=== PATIENT | male | born 1985 | race Caucasian/White ===

== ENCOUNTER 2024-05-28 15:54 | Emergency (ER) | payer BC ==
[~2024-05-28] VITALS: Ht 187.9 cm; Wt 140.6 kg
[~2024-05-28 15:54] MED LIST: AMOXICILLIN500 MG PO; CEPHALEXIN500 M1 PO; PROTONIX40 MG PO; SEPTRA DS 800 M1 TAB PO
[2024-05-28] MEDS ORDERED: methylPREDNISolone sod succ 125 MG VIAL IV ONE (17:00)
[2024-05-28] MEDS ORDERED: Albuterol Sulf/Ipratropium 3 ML VIAL NEB ONE (17:00)
[2024-05-28 17:17] LABS: HEMATOCRIT 48.1 % (42.0-52.0); MEAN CELL VOLUME 88.7 fl (80.0-94.0); MEAN CORPUSCULAR HGB 28.2 pg (27.0-31.0); MEAN CORPUSCULAR HGB CONC 31.8 g/dl (33.0-37.0); PLATELET COUNT AUTOMATED 309 10*3/uL (130-400); RED BLOOD COUNT 5.42 10*6/uL (4.50-5.90); RED CELL DISTRI WIDTH 13.3 % (0-14.5); WHITE BLOOD COUNT 18.8 10*3/uL (4.8-10.8)
[2024-05-28 17:18] LABS: MANUAL DIFF REFLEX YES
[2024-05-28 17:35] LABS: CHLORIDE 103 mmol/L (98-107); POTASSIUM 4.2 mmol/L (3.4-5.1)
[2024-05-28 17:38] LABS: BUN < 5 mg/dl (9-23)
[2024-05-28 17:45] LABS: PLATELET SUFFICIENCY NORMAL (NORMAL); TOTAL CELLS COUNTED 100 #CELLS
[2024-05-28 17:46] LABS: BURR CELLS FEW
[2024-05-28] MEDS ORDERED: VIBRAMYCIN100 MG PO (18:18)
[2024-05-28] MEDS ORDERED: PREDNISONE50 MG PO (18:18)
== END 2024-05-28 19:09 | disposition left against medical advice (07) ==
LOC: ED 15:54
PROVIDERS: Physician Assistant Medical
DX: R09.02 Hypoxemia (principal); R79.1 Abnormal coagulation profile; D72.829 Elevated white blood cell count, unspecified; Z53.29 Procedure and treatment not carried out because of patient's decision for other reasons; F17.210 Nicotine dependence, cigarettes, uncomplicated; Z88.2 Allergy status to sulfonamides; Z88.8 Allergy status to other drugs, medicaments and biological substances

== ENCOUNTER 2024-06-04 08:49 | Emergency (ER) | payer BC ==
[~2024-06-04] VITALS: Ht 187.9 cm; Wt 140.6 kg
[~2024-06-04 08:49] MED LIST changes: +PREDNISONE50 MG PO; +VIBRAMYCIN100 MG PO
[2024-06-04] MEDS ORDERED: SODIUM CHLORIDE 0.9% 1,000 ML IV ONE (09:15)
[2024-06-04] MEDS ORDERED: MORPHINE Sulfate 2 MG/ML SYR IV ONE (09:15)
[2024-06-04] MEDS ORDERED: Ondansetron Hydrochloride 4 MG/2 ML VIAL IV ONE (09:15)
[2024-06-04] MEDS ORDERED: Ketorolac Tromethamine 15 MG/ML VIAL IV ONE (09:15)
[2024-06-04 09:32] LABS: MEAN CELL VOLUME 89.5 fl (80.0-94.0); MEAN CORPUSCULAR HGB 28.2 pg (27.0-31.0); MEAN CORPUSCULAR HGB CONC 31.6 g/dl (33.0-37.0); MEAN PLATELET VOLUME 8.5 fl (9.6-12.3); PLATELET COUNT AUTOMATED 476 10*3/uL (130-400); RED CELL DISTRI WIDTH 13.3 % (0-14.5); WHITE BLOOD COUNT 17.3 10*3/uL (4.8-10.8)
[2024-06-04 09:33] LABS: MANUAL DIFF REFLEX YES
[2024-06-04 09:52] LABS: BUN 8 mg/dl (9-23); CHLORIDE 104 mmol/L (98-107); POTASSIUM 4.1 mmol/L (3.4-5.1)
[2024-06-04] MEDS ORDERED: WELLBUTRIN SR100 MG PO (10:09)
[2024-06-04] MEDS ORDERED: AVPAK AZITHROM250 M1 PO (10:09)
[2024-06-04] MEDS ORDERED: MELOXICAM15 MG PO (10:09)
[2024-06-04 10:10] LABS: ATYPICAL LYMPHS 2 % (0-0); BASOPHILS 1 % (0-1); TOTAL CELLS COUNTED 100 #CELLS
[2024-06-04 10:11] LABS: PLATELET SUFFICIENCY HIGH (NORMAL)
== END 2024-06-04 10:14 | disposition home or self-care (01) ==
LOC: ED 08:49
PROVIDERS: Emergency Medicine
DX: J40 Bronchitis, not specified as acute or chronic (principal); R07.81 Pleurodynia; F17.210 Nicotine dependence, cigarettes, uncomplicated; Z88.2 Allergy status to sulfonamides; Z88.8 Allergy status to other drugs, medicaments and biological substances

== ENCOUNTER → 2024-12-21 | Outpatient (CLI) | payer BC ==
[~2024-12-21] MED LIST changes: +AVPAK AZITHROM250 M1 PO; +MELOXICAM15 MG PO; +WELLBUTRIN SR100 MG PO
[2024-12-21 11:14] LABS: BASO # 0.1 10*3/uL (0.0-0.1); BASO % 0.8 % (0.0-1.0); EOS # 0.2 10*3/uL (0.0-0.4); EOS % 1.4 % (1.0-4.0); MEAN CELL VOLUME 89.3 fl (80.0-94.0); MEAN CORPUSCULAR HGB 28.6 pg (27.0-31.0); MEAN PLATELET VOLUME 9.0 fl (9.6-12.3); MONO # 1.0 10*3/uL (0.1-1.0); MONO % 9.2 % (3.0-9.0); NEUT # 5.8 10*3/uL (2.3-7.9); NEUT % 52.6 % (47.0-73.0); NUCLEATED RED BLOOD CELL 0.0 % (0.0-0.0); NUCLEATED RED BLOOD CELL 0.0 10*3/uL (0.0-0.0); PLATELET COUNT AUTOMATED 361 10*3/uL (130-400); RED CELL DISTRI WIDTH 13.2 % (0-14.5)
[2024-12-21 11:59] LABS: GAMMA GLUTAMYL TRANSFERASE 30 U/L (0-73); SGPT/ALT 37 U/L (5-49)
[2024-12-21 12:07] LABS: BUN < 5 mg/dl (9-23)
== END | disposition home or self-care (01) ==
LOC: LAB 10:11
PROVIDERS: ATTEND Nurse Practitioner Family
DX: D72.829 Elevated white blood cell count, unspecified (principal); R79.89 Other specified abnormal findings of blood chemistry